=== PATIENT | female | born 1965 | race Caucasian/White ===

== ENCOUNTER 2018-03-31 17:04 | Emergency (ER) | payer OTHER ==
[~2018-03-31] VITALS: Ht 152.4 cm; Wt 511.7 kg
[2018-03-31] MEDS ORDERED: ROBITUSSIN COU237 M1 (17:27)
[2018-03-31] MEDS ORDERED: [UNRECOGNIZED DRUG - OTHER] (17:27)
== END 2018-03-31 19:29 | disposition home or self-care (01) ==
LOC: ER 17:04
DX: B34.9 Viral infection, unspecified (principal); J40 Bronchitis, not specified as acute or chronic